=== PATIENT | male | born 1965 | race Caucasian/White ===

== ENCOUNTER 2023-09-13 14:54 | Inpatient (IN) | payer OTHER ==
[2023-09-13 16:32] VITALS: BMI 31.3
[2023-09-13] MEDS ORDERED: BENZONATATE 200 MG CAPSULE PO PRN (20:50)
[2023-09-13] MEDS ORDERED: POLYETHYLENE GLYCOL (HEALTHYLAX) 3350 17 GM PACKET PO PRN (20:50)
[2023-09-13] MEDS ORDERED: ACETAMINOPHEN 325 MG TABLET (FP) PO PRN (20:50)
[2023-09-13] MEDS ORDERED: LOPERAMIDE HCL 2 MG CAPSULE PO PRN (20:50)
[2023-09-13] MEDS ORDERED: MAGNESIUM HYDROX 2400MG/30ML ORAL SUSPENSION 30 ML CUP PO PRN (20:50)
[2023-09-13] MEDS ORDERED: NICOTINE POLACRILEX 2 MG LOZENGE BC PRN (20:50)
[2023-09-13] MEDS ORDERED: IBUPROFEN 400 MG TABLET (FP) PO PRN (20:50)
[2023-09-13] MEDS ORDERED: BENZOCAINE/MENTHOL (CHLORASEPTIC ) LOZENGE MM PRN (20:50)
[2023-09-13] MEDS ORDERED: NALOXONE HCL (KLOXXADO) 8 MG SPRAY NS PRN (20:50)
[2023-09-13] MEDS ORDERED: guaiFENesin 600 MG TABLET.ER (FP) PO PRN (20:50)
[2023-09-13] MEDS ORDERED: P-EPHED 60MG/TRIPROLIDI 2.5MG TABLET PO PRN (20:50)
[2023-09-13] MEDS ORDERED: MAG HYDROX/AL HYDROX/SIMETH 30 ML UNIT-DOSE CUP PO PRN (20:50)
[2023-09-13] MEDS ORDERED: IBUPROFEN 600 MG TABLET (FP) PO PRN (20:50)
[2023-09-13] MEDS ORDERED: NALOXONE HCL 0.4 MG/ML VIAL IM PRN (20:50)
[2023-09-13] MEDS: MELATONIN 5 MG TABLETS PO SCH (22:41)
[2023-09-13] MEDS: hydrOXYzine PAMOATE 25 MG CAPSULE (FP) PO PRN (22:41)
[2023-09-13] MEDS: THIAMINE 100 MG TABLET PO SCH (22:41)
[2023-09-13] MEDS: ALBUTEROL SO4 HFA INHALER IH PRN (22:48)
[2023-09-14] MEDS: TUBERCULIN PPD 5 TU/0.1ML SYRINGE (IN PATIENT USE ONLY) ID ONE (09:31)
[2023-09-14 10:25] LABS: HEMATOCRIT 38.4 % (35.4-49); HEMOGLOBIN 13.6 GM/dL (11.7-16.9); MCH 33.3 pg (25.7-33.7); MCHC 35.5 g/dl (32.0-35.9); MEAN CELL VOLUME 93.8 fl (80-96); MEAN PLT VOLUME 7.9 fl (7.5-11.1); PLATELET COUNT 226 10^3/uL (134-434); RBC 4.09 M/mm3 (4.00-5.60); RDW 13.7 % (11.9-15.9); WHITE BLOOD COUNT 7.6 K/mm3 (4.0-10.0)
[2023-09-14] MEDS: methaDONE HCL 40 MG DISPERSABLE TABLET PO ONE (10:30)
[2023-09-14] MEDS: PRENATAL VITAMINS W/ FOLIC ACID TABLET (FP) PO SCH (10:30)
[2023-09-14 10:31] LABS: POTASSIUM 3.8 mmol/L (3.5-5.1)
[2023-09-14 10:43] LABS: ALBUMIN 3.4 g/dl (3.4-5.0); BLOOD UREA NITROGEN 14.6 mg/dL (7-18); CALCIUM 8.9 mg/dL (8.5-10.1)
[2023-09-14 10:46] LABS: CREATININE 0.7 mg/dL (0.55-1.3)
[2023-09-14 10:48] LABS: BILIRUBIN,TOTAL 0.5 mg/dL (0.2-1); TOT PROT 6.9 g/dl (6.4-8.2)
[2023-09-14] MEDS: metFORMIN HCL 500 MG TABLET (FP) PO SCH (17:14)
[2023-09-14] MEDS: QUEtiapine FUMARATE 100 MG TABLET (FP) PO SCH (21:13)
[2023-09-15] MEDS: methaDONE HCL 40 MG DISPERSABLE TABLET PO SCH (05:43)
[2023-09-19] MEDS: NICOTINE POLACRILEX 2 MG GUM BUC PRN (16:19)
[2023-09-21] MEDS: clonazePAM 0.25 MG ODT TABLETS SL SCH (13:59)
[2023-09-21] MEDS: CLINDAMYCIN PHOSPHATE 1% TOPICAL GEL 30 GM TUBE TP SCH (21:14)
[2023-09-22] MEDS: methaDONE HCL 40 MG DISPERSABLE TABLET PO SCH (06:26)
[2023-09-22] MEDS: clonazePAM 0.5 MG ODT TABLETS SL SCH (09:46)
[2023-09-25] MEDS ORDERED: QUEtiapine FUMARATE 50 MG TABLET ONE (21:21)
[2023-09-29] MEDS: methaDONE HCL 40 MG DISPERSABLE TABLET PO SCH (05:58)
[2023-10-02] MEDS ORDERED: QUEtiapine FUMARATE 50 MG TABLET ONE (21:11)
[2023-10-04 06:41] VITALS: RESP 16; TEMP 97.5
[2023-10-04 09:04] VITALS: BP 99/60; PULSE 60
== END 2023-10-04 09:04 | disposition home or self-care (01) | DRG 772 ==
LOC: YASAS 14:54 → Y3NR 21:23 → Y3W 09-15 12:33
PROVIDERS: ADMIT Allergy & Immunology; ATTEND Psychiatry & Neurology Pain Medicine
PROC: HZ42ZZZ Group Counseling for Substance Abuse Treatment, Cognitive-Behavioral (ICD-10-PCS; principal; 2023-09-13)
DX: F11.20 Opioid dependence, uncomplicated (principal); F12.20 Cannabis dependence, uncomplicated; F17.210 Nicotine dependence, cigarettes, uncomplicated; F31.9 Bipolar disorder, unspecified; F41.9 Anxiety disorder, unspecified; G47.00 Insomnia, unspecified; J45.909 Unspecified asthma, uncomplicated; E11.9 Type 2 diabetes mellitus without complications; Z79.84 Long term (current) use of oral hypoglycemic drugs; M25.562 Pain in left knee; L02.811 Cutaneous abscess of head [any part, except face]; Z99.89 Dependence on other enabling machines and devices; Z56.0 Unemployment, unspecified; Z59.00 Homelessness unspecified
CPT/HCPCS: 36415; 80053; 80305; 82962; 85027; 86780; 87811; 93005; 93010

== ENCOUNTER 2024-06-20 12:21 | Inpatient (IN) | payer OTHER ==
[2024-06-20 13:31] VITALS: BMI 32.5
[2024-06-20] MEDS ORDERED: ONDANSETRON *ODT* 4 MG TABLET SL PRN (13:39)
[2024-06-20] MEDS ORDERED: guaiFENesin 600 MG TABLET.ER (FP) PO PRN (13:39)
[2024-06-20] MEDS ORDERED: POLYETHYLENE GLYCOL (HEALTHYLAX) 3350 17 GM PACKET PO PRN (13:39)
[2024-06-20] MEDS ORDERED: IBUPROFEN 600 MG TABLET (FP) PO PRN (13:39)
[2024-06-20] MEDS ORDERED: hydrOXYzine PAMOATE 25 MG CAPSULE (FP) PO PRN (13:39)
[2024-06-20] MEDS ORDERED: LOPERAMIDE HCL 2 MG CAPSULE PO PRN (13:39)
[2024-06-20] MEDS ORDERED: MAG HYDROX/AL HYDROX/SIMETH 30 ML UNIT-DOSE CUP PO PRN (13:39)
[2024-06-20] MEDS ORDERED: MAGNESIUM HYDROX 2400MG/30ML ORAL SUSPENSION 30 ML CUP PO PRN (13:39)
[2024-06-20] MEDS ORDERED: METHOCARBAMOL 500 MG TABLET PO PRN (13:39)
[2024-06-20] MEDS ORDERED: ACETAMINOPHEN 325 MG TABLET (FP) PO PRN (13:39)
[2024-06-20] MEDS ORDERED: BENZONATATE 200 MG CAPSULE PO PRN (13:39)
[2024-06-20] MEDS ORDERED: NICOTINE POLACRILEX 2 MG GUM BUC PRN (13:39)
[2024-06-20] MEDS ORDERED: IBUPROFEN 400 MG TABLET (FP) PO PRN (13:39)
[2024-06-20] MEDS ORDERED: BENZOCAINE/MENTHOL (CHLORASEPTIC ) LOZENGE MM PRN (13:39)
[2024-06-20] MEDS ORDERED: BISMUTH SUBSALICYLATE 262 MG/15 ML BTL PO PRN (13:39)
[2024-06-20] MEDS ORDERED: DICYCLOMINE HCL 10 MG CAPSULE PO PRN (13:39)
[2024-06-20] MEDS ORDERED: NALOXONE (NARCAN) HCL 4 MG/0.1 ML SPRAY NS PRN (13:39)
[2024-06-20] MEDS ORDERED: ALBUTEROL SO4 HFA INHALER IH PRN (13:42)
[2024-06-20] MEDS ORDERED: metFORMIN HCL 500 MG TABLET (FP) PO SCH (16:30)
[2024-06-20] MEDS: DOXYCYCLINE HYCLATE 100 MG TABLET PO SCH (17:20)
[2024-06-20] MEDS: metFORMIN HCL 500 MG TABLET (FP) PO SCH (17:20)
[2024-06-20] MEDS: clonazePAM 0.5 MG ODT TABLETS SL ONE (18:21)
[2024-06-20] MEDS: THIAMINE 100 MG TABLET PO SCH (21:40)
[2024-06-20] MEDS: CEFPODOXIME PROXETIL 100 MG TABLET PO SCH (21:40)
[2024-06-20] MEDS: MELATONIN 5 MG TABLETS PO SCH (21:40)
[2024-06-20] MEDS: BUDESONIDE/FORMETEROL FUMARATE 160/4.5 mcg INHALER IH SCH (21:40)
[2024-06-20] MEDS: QUEtiapine FUMARATE 100 MG TABLET (FP) PO SCH (21:40)
[2024-06-21] MEDS: methaDONE HCL 40 MG DISPERSABLE TABLET PO SCH (09:26)
[2024-06-21] MEDS: PRENATAL VITAMINS W/ FOLIC ACID TABLET (FP) PO SCH (09:27)
[2024-06-21 09:56] LABS: HEMATOCRIT 37.5 % (35.4-49); HEMOGLOBIN 12.4 GM/dL (11.7-16.9); MCH 30.3 pg (25.7-33.7); MEAN CELL VOLUME 91.9 fl (80-96); MEAN PLT VOLUME 8.2 fl (7.5-11.1); PLATELET COUNT 280 10^3/uL (134-434); RBC 4.08 M/mm3 (4.00-5.60); RDW 14.8 % (11.9-15.9); WHITE BLOOD COUNT 10.8 K/mm3 (4.0-10.0)
[2024-06-21 10:00] LABS: CHLORIDE 104 mmol/L (98-107); POTASSIUM 3.8 mmol/L (3.5-5.1); SODIUM 138 mmol/L (136-145)
[2024-06-21 10:15] LABS: ALBUMIN 2.8 g/dl (3.4-5.0); ANION GAP 8 mmol/L (4-13); BLOOD UREA NITROGEN 10.6 mg/dL (7-18); CALCIUM 8.4 mg/dL (8.5-10.1); CO2 26 mmol/L (21-32); GLUCOSE,RANDOM 222 mg/dL (74-106)
[2024-06-21 10:18] LABS: CREATININE 0.6 mg/dL (0.55-1.3); SGOT/AST 138 U/L (15-37); SGPT/ALT 160 U/L (13-61)
[2024-06-21 10:20] LABS: BILIRUBIN,TOTAL 0.6 mg/dL (0.2-1)
[2024-06-21 10:21] LABS: ALK PHOS 180 U/L (45-117)
[2024-06-21] MEDS: clonazePAM 0.5 MG ODT TABLETS SL SCH (10:50)
[2024-06-21 13:50] VITALS: BP 122/69; PULSE 70; RESP 16; TEMP 97
[2024-06-21] MEDS ORDERED: QUEtiapine FUMARATE 50 MG TABLET PO SCH (22:00)
== END 2024-06-21 14:41 | disposition other institution (70) | DRG 773 ==
LOC: YASAS 12:21 → Y3N 15:22
PROVIDERS: ADMIT Allergy & Immunology; ATTEND Allergy & Immunology
PROC: HZ2ZZZZ Detoxification Services for Substance Abuse Treatment (ICD-10-PCS; principal; 2024-06-20)
DX: F11.20 Opioid dependence, uncomplicated (principal); F13.20 Sedative, hypnotic or anxiolytic dependence, uncomplicated; F16.20 Hallucinogen dependence, uncomplicated; F17.210 Nicotine dependence, cigarettes, uncomplicated; F31.9 Bipolar disorder, unspecified; J18.9 Pneumonia, unspecified organism; J45.909 Unspecified asthma, uncomplicated; Z59.00 Homelessness unspecified
CPT/HCPCS: 36415; 71046-TC-FY; 80053; 80305; 80307; 82962; 83036; 85027; 86780; 86803; 87522; 87811; 93005; 93010

== ENCOUNTER 2024-09-13 16:17 | Inpatient (IN) | payer OTHER ==
[2024-09-13 16:50] VITALS: BMI 33.3
[2024-09-13] MEDS ORDERED: LOPERAMIDE HCL 2 MG CAPSULE PO PRN (17:12)
[2024-09-13] MEDS ORDERED: NICOTINE POLACRILEX 2 MG GUM BUC PRN (17:12)
[2024-09-13] MEDS ORDERED: IBUPROFEN 400 MG TABLET (FP) PO PRN (17:12)
[2024-09-13] MEDS ORDERED: BENZONATATE 200 MG CAPSULE PO PRN (17:12)
[2024-09-13] MEDS ORDERED: POLYETHYLENE GLYCOL (HEALTHYLAX) 3350 17 GM PACKET PO PRN (17:12)
[2024-09-13] MEDS ORDERED: NICOTINE POLACRILEX 2 MG LOZENGE BC PRN (17:12)
[2024-09-13] MEDS ORDERED: NALOXONE (NARCAN) HCL 4 MG/0.1 ML SPRAY NS PRN (17:12)
[2024-09-13] MEDS ORDERED: IBUPROFEN 600 MG TABLET (FP) PO PRN (17:12)
[2024-09-13] MEDS ORDERED: MAGNESIUM HYDROX 2400MG/30ML ORAL SUSPENSION 30 ML CUP PO PRN (17:12)
[2024-09-13] MEDS ORDERED: ACETAMINOPHEN 325 MG TABLET (FP) PO PRN (17:12)
[2024-09-13] MEDS ORDERED: guaiFENesin 600 MG TABLET.ER (FP) PO PRN (17:12)
[2024-09-13] MEDS ORDERED: BENZOCAINE/MENTHOL (CHLORASEPTIC ) LOZENGE MM PRN (17:12)
[2024-09-13] MEDS ORDERED: ALBUTEROL SO4 HFA INHALER IH PRN (20:19)
[2024-09-13] MEDS: THIAMINE 100 MG TABLET PO SCH (21:35)
[2024-09-13] MEDS: MELATONIN 5 MG TABLETS PO SCH (21:36)
[2024-09-13] MEDS: hydrOXYzine PAMOATE 25 MG CAPSULE (FP) PO PRN (21:37)
[2024-09-13] MEDS: BUDESONIDE/FORMETEROL FUMARATE 160/4.5 mcg INHALER IH SCH (22:16)
[2024-09-14] MEDS: metFORMIN HCL 500 MG TABLET (FP) PO SCH (06:31)
[2024-09-14] MEDS ORDERED: methaDONE HCL 10 MG TABLET PO ONE (07:10)
[2024-09-14] MEDS: methaDONE 80 MG, methaDONE 10 MG PO SCH (07:21)
[2024-09-14] MEDS: PRENATAL VITAMINS W/ FOLIC ACID TABLET (FP) PO SCH (09:46)
[2024-09-14] MEDS: clonazePAM 1 MG ODT TABLETS SL SCH (10:00)
[2024-09-14 11:49] LABS: HEMATOCRIT 33.2 % (40.1-51.0); HEMOGLOBIN 12.1 g/dL (13.7-17.5); MCHC 36.4 g/dl (32.3-36.5); MEAN PLT VOLUME 10.9 fl (9.4-12.4); PLATELET COUNT 260 x10^3/uL (163-337); RDW 13.4 % (12.2-16.1)
[2024-09-14 11:50] LABS: URINE APPEARANCE CLEAR; URINE BILIRUBIN NEGATIVE (NEGATIVE); URINE COLOR YELLOW; URINE GLUCOSE (UA) TRACE (NEGATIVE); URINE KETONE NEGATIVE (NEGATIVE); URINE LEUK ESTERASE NEGATIVE (NEGATIVE); URINE NITRITE NEGATIVE (NEGATIVE); URINE PROTEIN NEGATIVE (NEGATIVE); URINE UROBILINOGEN 0.2 mg/dL (0.2-1.0)
[2024-09-14 12:07] LABS: CHLORIDE 102 mmol/L (98-107); POTASSIUM 3.6 mmol/L (3.5-5.1); SODIUM 137 mmol/L (136-145)
[2024-09-14 12:21] LABS: ANION GAP 26 mmol/L (4-13); CO2 9 mmol/L (21-32)
[2024-09-14 12:22] LABS: ALBUMIN 3.1 g/dl (3.4-5.0); BLOOD UREA NITROGEN 10.6 mg/dL (7-18); GLUCOSE,RANDOM 185 mg/dL (74-106); SGOT/AST 59 U/L (15-37); SGPT/ALT 84 U/L (13-61)
[2024-09-14 12:24] LABS: BILIRUBIN,TOTAL 0.2 mg/dL (0.2-1); TOT PROT 7.5 g/dl (6.4-8.2)
[2024-09-14 12:25] LABS: ALK PHOS 132 U/L (45-117); CREATININE 0.6 mg/dL (0.55-1.3)
[2024-09-14] MEDS ORDERED: NICOTINE POLACRILEX 4 MG GUM BUC PRN (16:10)
[2024-09-14] MEDS ORDERED: INSULIN (NOVOLOG) ASPART 100 UNITS/ML 10ML VIAL ONE (16:32)
[2024-09-14] MEDS: INSULIN ASPART SLIDING SCALE (NOVOLOG) 1 VIAL SQ SCH (16:34)
[2024-09-14] MEDS: amLODIPine BESYLATE 5 MG TABLET (FP) PO SCH (16:38)
[2024-09-14] MEDS: NICOTINE 14 MG/24 HOURS TOPICAL PATCH TD SCH (16:38)
[2024-09-14] MEDS: QUEtiapine FUMARATE 200 MG TABLET PO SCH (21:13)
[2024-09-15] MEDS ORDERED: methaDONE HCL 10 MG TABLET PO SCH (06:00)
[2024-09-15] MEDS ORDERED: INSULIN (NOVOLOG) ASPART 100 UNITS/ML 10ML VIAL ONE (06:58)
[2024-09-16] MEDS ORDERED: INSULIN (NOVOLOG) ASPART 100 UNITS/ML 10ML VIAL ONE (08:03)
[2024-09-16] MEDS: MAG HYDROX/AL HYDROX/SIMETH 30 ML UNIT-DOSE CUP PO PRN (12:14)
[2024-09-17] MEDS ORDERED: INSULIN (NOVOLOG) ASPART 100 UNITS/ML 10ML VIAL ONE (07:15)
[2024-09-17] MEDS: NICOTINE POLACRILEX 4 MG GUM BUC PRN (09:57)
[2024-09-18] MEDS ORDERED: INSULIN (NOVOLOG) ASPART 100 UNITS/ML 10ML VIAL ONE ×2 (06:09→16:53)
[2024-09-19] MEDS ORDERED: INSULIN (NOVOLOG) ASPART 100 UNITS/ML 10ML VIAL ONE ×2 (06:29→16:41)
[2024-09-20] MEDS: methaDONE HCL 40 MG DISPERSABLE TABLET PO SCH (06:25)
[2024-09-20] MEDS ORDERED: INSULIN (NOVOLOG) ASPART 100 UNITS/ML 10ML VIAL ONE (07:51)
[2024-09-20] MEDS: clonazePAM 0.5 MG ODT TABLETS SL SCH (21:07)
[2024-09-20] MEDS: QUEtiapine FUMARATE 100 MG TABLET (FP) PO SCH (21:08)
[2024-09-20] MEDS ORDERED: clonazePAM 1 MG ODT TABLETS SL SCH (22:00)
[2024-09-21] MEDS ORDERED: INSULIN (NOVOLOG) ASPART 100 UNITS/ML 10ML VIAL ONE (16:43)
[2024-09-22] MEDS ORDERED: INSULIN (NOVOLOG) ASPART 100 UNITS/ML 10ML VIAL ONE (05:59)
[2024-09-23] MEDS ORDERED: INSULIN (NOVOLOG) ASPART 100 UNITS/ML 10ML VIAL ONE ×2 (06:01→17:03)
[2024-09-24] MEDS ORDERED: INSULIN (NOVOLOG) ASPART 100 UNITS/ML 10ML VIAL ONE (06:41)
[2024-09-24] MEDS: GABAPENTIN 100 MG CAPSULE PO SCH (10:14)
[2024-09-24] MEDS: clonazePAM 0.25 MG ODT TABLETS SL SCH (10:16)
[2024-09-25] MEDS ORDERED: INSULIN (NOVOLOG) ASPART 100 UNITS/ML 10ML VIAL ONE ×2 (08:08→16:51)
[2024-09-26] MEDS ORDERED: INSULIN (NOVOLOG) ASPART 100 UNITS/ML 10ML VIAL ONE (06:31)
[2024-09-27] MEDS ORDERED: INSULIN (NOVOLOG) ASPART 100 UNITS/ML 10ML VIAL ONE (06:05)
[2024-09-27] MEDS: QUEtiapine FUMARATE 50 MG TABLET PO SCH (21:16)
[2024-09-28] MEDS ORDERED: NICOTINE 14 MG/24 HOURS TOPICAL PATCH TD PRN (11:11)
[2024-10-01] MEDS ORDERED: methaDONE HCL 40 MG DISPERSABLE TABLET PO SCH (14:15)
[2024-10-02] MEDS ORDERED: methaDONE HCL 40 MG DISPERSABLE TABLET PO SCH (06:00)
[2024-10-02] MEDS: methaDONE 80 MG, methaDONE 10 MG PO SCH (06:03)
[2024-10-04] MEDS ORDERED: INSULIN (NOVOLOG) ASPART 100 UNITS/ML 10ML VIAL ONE (07:53)
[2024-10-08] MEDS ORDERED: INSULIN (NOVOLOG) ASPART 100 UNITS/ML 10ML VIAL ONE (06:32)
[2024-10-11 06:39] VITALS: RESP 18; TEMP 97.1
[2024-10-11 09:07] VITALS: BP 127/66; PULSE 86
== END 2024-10-11 09:21 | disposition home or self-care (01) | DRG 772 ==
LOC: YASAS 16:17 → Y3E 17:53
PROVIDERS: ADMIT Psychiatry & Neurology Pain Medicine; ATTEND Psychiatry & Neurology Pain Medicine
PROC: HZ42ZZZ Group Counseling for Substance Abuse Treatment, Cognitive-Behavioral (ICD-10-PCS; principal; 2024-09-13)
DX: F11.20 Opioid dependence, uncomplicated (principal); F16.20 Hallucinogen dependence, uncomplicated; F12.20 Cannabis dependence, uncomplicated; F17.210 Nicotine dependence, cigarettes, uncomplicated; F31.9 Bipolar disorder, unspecified; F41.9 Anxiety disorder, unspecified; G47.00 Insomnia, unspecified; I10 Essential (primary) hypertension; J45.909 Unspecified asthma, uncomplicated; E11.9 Type 2 diabetes mellitus without complications; Z79.84 Long term (current) use of oral hypoglycemic drugs; M25.562 Pain in left knee; G89.29 Other chronic pain
CPT/HCPCS: 36415; 80053; 80305; 80307; 81003; 82962; 85027; 86780; 87811